=== PATIENT | female | born 1995 ===

== ENCOUNTER 2017-03-27 18:18 | Emergency (ER) | payer OTHER ==
[2017-03-27 18:30] VITALS: O2SAT 98
[2017-03-27] MEDS ORDERED: Silver Sulfadiazine 1% Cream (20 gm) TOP STA (18:59)
[2017-03-27] MEDS ORDERED: Oxycodone/Acetaminophen 5/325 mg Tab PO STA (18:59)
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
[2017-03-27] MEDS ORDERED: Oxycodone/Acetaminophen 5/325 mg Tab ONE (19:06)
[2017-03-27] MEDS ORDERED: Silver Sulfadiazine 1% Cream (20 gm) ONE (19:08)
[2017-03-27 19:31] VITALS: BP 148/72; PULSE 82; RESP 18; TEMP 98.1
== END 2017-03-27 20:10 | disposition home or self-care (01) ==
LOC: C.ER 18:18
DX: T23.252A Burn of second degree of left palm, initial encounter (principal); X19.XXXA Contact with other heat and hot substances, initial encounter